=== PATIENT | female | born 1970 | race Caucasian/White ===

== ENCOUNTER 2018-08-05 18:01 | Emergency (ER) | payer MEDICAID ==
[~2018-08-05] VITALS: Ht 162.6 cm; Wt 50.0 kg
[~2018-08-05 18:01] MED LIST: ASPI-1079 PO; DEPO; FOLI-43 PO; INSASP SQ; INSU100C11 SQ; METF500T6 PO; MULT-1146 PO
[2018-08-05] MEDS ORDERED: KETOROLAC 30MG/ML VIAL IV STA (19:23)
[2018-08-05] MEDS ORDERED: SODIUM CHLORIDE 0.9% 1,000 ML IV ONE (19:23)
[2018-08-05] MEDS ORDERED: CEFTRIAXONE 1 G PREMIX 50 ML IV ONE (19:30)
[2018-08-05 20:02] LABS: BASOPHILS % 0.8 % (0.0-2.0); EOSINOPHILS % 2.2 % (0.0-5.0); HEMATOCRIT. 40.7 % (36.0-48.0); HEMOGLOBIN. 13.6 g/dL (12.0-16.0); LYMPHOCYTES % 22.9 % (20.0-50.0); MEAN CORPUSCULAR HEMOGLOBIN 30.7 pg (28.0-32.0); MEAN PLATELET VOLUME 8.8 fl (7.4-10.4); NEUTROPHILS % 64.1 % (40.0-76.0); PLATELET 337 x1000/uL (130-400); RED BLOOD CELL COUNT 4.43 mill/uL (4.2-5.4); RED CELL DISTRIBUTION WIDTH 14.3 % (11.6-14.6)
[2018-08-05 20:06] LABS: CHLORIDE 97 mEq/L (98-107)
[2018-08-05 20:09] LABS: INR 0.9; PROTHROMBIN TIME 9.3 sec (9.1-11.1)
[2018-08-05 20:25] LABS: HCG SCREEN NEGATIVE
[2018-08-05] MEDS ORDERED: INSULIN REGULAR (HUMULIN R) 300UNITS/3ML SUBCUT NR (20:30)
[2018-08-05] MEDS ORDERED: SODIUM CHLORIDE 0.9% 1000ML BAG (SEPSIS BOLUS) IV ONE (20:30)
[2018-08-05] MEDS ORDERED: SODIUM CHLORIDE 0.9% 500 ML IV NR (20:40)
[2018-08-05 21:21] LABS: BG BASE EXCESS 2.7 mmol/L (-2.0-2.0); BG CARBOXYHEMOGLOBIN 3.2 % (0.5-1.5); BG DEOXYHEMOGLOBIN 2.7 % (0.0-5.0); BG FRACTION INSPIRED OXYGEN 21; BG HCO3 ACT 27.1 mmol/L (22.0-26.0); BG METHEMOGLOBIN 0.2 % (0.0-1.5); BG OXYGEN SATURATION 97.2 % (92.0-98.5); BG OXYHEMOGLOBIN 93.9 % (94.0-97.0); BG PCO2 40.9 mmHg (35.0-45.0); BG PH 7.439 (7.350-7.450); BG SAMPLE SITE RIGHT RADIAL; BG TOTAL HEMOGLOBIN 13.6 g/dL (12.0-18.0); BG VENT MODE ROOM AIR
[2018-08-05 22:03] LABS: CLARITY URINE CLEAR (CLEAR); COLOR URINE YELLOW (YELLOW); KETONES URINE NEGATIVE (NEGATIVE); LEUKOCYTE ESTERASE URINE NEGATIVE (NEGATIVE); NITRITE URINE NEGATIVE (NEGATIVE); OCCULT BLOOD URINE NEGATIVE (NEGATIVE); PROTEIN URINE NEGATIVE (NEGATIVE); SPECIFIC GRAVITY URINE 1.023 (1.005-1.030); UROBILINOGEN URINE 0.2 E.U./dL (0.2-1.0)
[2018-08-06] VITALS: BP 124/82
== END 2018-08-06 00:47 | disposition home or self-care (01) ==
LOC: ER 18:01
DX: L03.115 Cellulitis of right lower limb (principal); E11.9 Type 2 diabetes mellitus without complications; F17.210 Nicotine dependence, cigarettes, uncomplicated; Z88.5 Allergy status to narcotic agent; Z90.89 Acquired absence of other organs; Z79.899 Other long term (current) drug therapy; Z79.4 Long term (current) use of insulin; Z79.84 Long term (current) use of oral hypoglycemic drugs
CPT/HCPCS: 36415; 36600; 73560; 80053; 81003; 81025; 82010; 82375; 82805; 82962; 83605; 84703; 85025; 85610; 87040; 93005; 96365; 96372; 96375; 99285; 99406; J0696; J1815; J1885; J7030; Z7610

== ENCOUNTER 2018-08-20 20:04 | Inpatient (IN) | payer MEDICAID ==
[~2018-08-20] VITALS: Ht 162.6 cm; Wt 44.7 kg
[2018-08-20] MEDS ORDERED: SODIUM CHLORIDE 0.9% 1,000 ML IV ONE ×3 (20:32→23:15)
[2018-08-20] MEDS ORDERED: ONDANSETRON HCL 4MG/2ML INJ IV STA (20:32)
[2018-08-20 21:57] LABS: BASOPHILS % 0.2 % (0.0-2.0); EOSINOPHILS % 0.1 % (0.0-5.0); HEMATOCRIT. 39.4 % (36.0-48.0); LYMPHOCYTES % 10.1 % (20.0-50.0); MEAN CORPUSCULAR HEMOGLOBIN 30.9 pg (28.0-32.0); MEAN CORPUSCULAR VOLUME 93.9 fL (81.0-99.0); MEAN PLATELET VOLUME 8.4 fl (7.4-10.4); MONOCYTES % 2.9 % (2.0-8.0); NEUTROPHILS % 86.7 % (40.0-76.0); PLATELET 657 x1000/uL (130-400); RED CELL DISTRIBUTION WIDTH 13.7 % (11.6-14.6)
[2018-08-20 22:01] LABS: CHLORIDE 91 mEq/L (98-107)
[2018-08-20 22:10] LABS: INR 0.9; PROTHROMBIN TIME 9.4 sec (9.1-11.1)
[2018-08-20 22:39] LABS: CLARITY URINE CLEAR (CLEAR); COLOR URINE YELLOW (YELLOW); KETONES URINE 4+ (NEGATIVE); LEUKOCYTE ESTERASE URINE NEGATIVE (NEGATIVE); NITRITE URINE NEGATIVE (NEGATIVE); OCCULT BLOOD URINE NEGATIVE (NEGATIVE); PROTEIN URINE NEGATIVE (NEGATIVE); SPECIFIC GRAVITY URINE 1.023 (1.005-1.030); UROBILINOGEN URINE 0.2 E.U./dL (0.2-1.0)
[2018-08-20 22:53] LABS: BETA HYDROXYBUTYRATE 24.6 mMol/L (0.0-0.3)
[2018-08-20] MEDS ORDERED: INSULIN REGULAR (HUMULIN R) 300UNITS/3ML IV ONE ×2 (23:00→23:15)
[2018-08-20 23:49] LABS: BG BASE EXCESS -15.4 mmol/L (-2.0-2.0); BG CARBOXYHEMOGLOBIN 0.6 % (0.5-1.5); BG DEOXYHEMOGLOBIN 2.7 % (0.0-5.0); BG FRACTION INSPIRED OXYGEN 21; BG HCO3 ACT 8.2 mmol/L (22.0-26.0); BG METHEMOGLOBIN 0.4 % (0.0-1.5); BG OXYGEN SATURATION 97.3 % (92.0-98.5); BG OXYHEMOGLOBIN 96.3 % (94.0-97.0); BG PCO2 16.8 mmHg (35.0-45.0); BG PH 7.309 (7.350-7.450); BG PO2 102.2 mmHg (75.0-100.0); BG SAMPLE SITE RIGHT RADIAL; BG TOTAL HEMOGLOBIN 13.6 g/dL (12.0-18.0); BG VENT MODE ROOM AIR
[2018-08-21] VITALS (37 sets, daily range): BP systolic 100–142; BP diastolic 58–98
[2018-08-21] MEDS ORDERED: ONDANSETRON HCL 4MG/2ML INJ IV ONE (01:15)
[2018-08-21 02:06] LABS: CHLORIDE 96 mEq/L (98-107)
[2018-08-21] MEDS ORDERED: INSULIN REGULAR (DRIP) 100 UNITS in SODIUM CHLORIDE 0.9% 100 ML IV ONE ×2 (02:15→03:15)
[2018-08-21] MEDS ORDERED: LORAZEPAM 2MG/ML CPJ IV ONE (03:00)
[2018-08-21] MEDS ORDERED: INSULIN REGULAR (DRIP) 100 UNITS in SODIUM CHLORIDE 0.9% 100 ML IV SCH (03:15)
[2018-08-21] MEDS ORDERED: DEXTROSE 50% WATER 50ML SYRINGE IV PRN ×2 (06:00)
[2018-08-21] MEDS: ONDANSETRON HCL 4MG/2ML INJ IV PRN ×3 (06:20→22:10)
[2018-08-21] MEDS ORDERED: INSULIN REGULAR (DRIP) 100 UNITS in SODIUM CHLORIDE 0.9% 99 ML IV SCH (06:30)
[2018-08-21] MEDS ORDERED: DEXT 5%/0.9% NACL KCL 20MEQ/L 1,000 ML IV ONE (06:30)
[2018-08-21] MEDS ORDERED: SODIUM CHL 0.9% + KCL 20MEQ/L 1,000 ML IV SCH (06:30)
[2018-08-21] MEDS: ENOXAPARIN 40MG/0.4ML SYR SUBCUT SCH ×2 (08:40→11:46)
[2018-08-21 09:08] LABS: CHLORIDE 106 mEq/L (98-107)
[2018-08-21] MEDS ORDERED: LIDOCAINE HCL 1% 20ML VIAL (Pyxis) INJ ONE (10:05)
[2018-08-21] MEDS: BLOOD SUGAR DIAGNOSTIC STRIP TEST SCH ×13 (11:00→23:00)
[2018-08-21] MEDS: NICOTINE 14MG PATCH TD SCH (11:46)
[2018-08-21 13:27] LABS: CHLORIDE 108 mEq/L (98-107)
[2018-08-21] MEDS: DEXT 5%/0.45% NACL 1000ML 1,000 ML IV SCH (16:28)
[2018-08-21 17:41] LABS: CHLORIDE 108 mEq/L (98-107)
[2018-08-22] VITALS (47 sets, daily range): BP systolic 112–156; BP diastolic 75–97
[2018-08-22] MEDS ORDERED: INSULIN REGULAR (DRIP) 100 UNITS in SODIUM CHLORIDE 0.9% 100 ML IV SCH ×2
[2018-08-22] MEDS: BLOOD SUGAR DIAGNOSTIC STRIP TEST SCH ×7 (01:10→20:00)
[2018-08-22] MEDS: DEXT 5%/0.45% NACL 1000ML 1,000 ML IV SCH ×2 (01:22→21:25)
[2018-08-22] MEDS ORDERED: DEXTROSE 50% WATER 50ML SYRINGE IV PRN (02:15)
[2018-08-22] MEDS: LORAZEPAM 2MG/ML CPJ IV PRN ×3 (03:14→21:25)
[2018-08-22] MEDS ORDERED: INSULIN GLARGINE UD 100 UNITS/ML SYR SUBCUT SCH ×2 (04:00→22:00)
[2018-08-22] MEDS: INSULIN LISPRO 100 UNITS/ML SUBCUT SCH ×5 (05:15→21:24)
[2018-08-22] MEDS ORDERED: PANTOPRAZOLE 40MG DR TABLET PO SCH (06:00)
[2018-08-22 06:13] LABS: BASOPHILS % 0.8 % (0.0-2.0); EOSINOPHILS % 0.2 % (0.0-5.0); HEMATOCRIT. 37.1 % (36.0-48.0); HEMOGLOBIN. 12.5 g/dL (12.0-16.0); LYMPHOCYTES % 16.9 % (20.0-50.0); MEAN CORPUSCULAR HEMOGLOBIN 31.6 pg (28.0-32.0); MEAN CORPUSCULAR VOLUME 93.7 fL (81.0-99.0); MEAN PLATELET VOLUME 9.6 fl (7.4-10.4); NEUTROPHILS % 72.1 % (40.0-76.0); PLATELET 579 x1000/uL (130-400); RED BLOOD CELL COUNT 3.96 mill/uL (4.2-5.4); RED CELL DISTRIBUTION WIDTH 13.3 % (11.6-14.6)
[2018-08-22] MEDS: NICOTINE 14MG PATCH TD SCH (08:43)
[2018-08-22] MEDS: PANTOPRAZOLE 40MG DR TABLET PO SCH (08:44)
[2018-08-22] MEDS: ONDANSETRON HCL 4MG/2ML INJ IV PRN ×2 (08:44→17:42)
[2018-08-22] MEDS: ENOXAPARIN 30MG/0.3ML SYR SUBCUT SCH (08:45)
[2018-08-22 13:17] LABS: BASOPHILS % 0.4 % (0.0-2.0); EOSINOPHILS % 0.1 % (0.0-5.0); HEMATOCRIT. 36.5 % (36.0-48.0); HEMOGLOBIN. 12.4 g/dL (12.0-16.0); LYMPHOCYTES % 18.7 % (20.0-50.0); MEAN CORPUSCULAR HEMOGLOBIN 31.4 pg (28.0-32.0); MEAN CORPUSCULAR VOLUME 92.3 fL (81.0-99.0); MEAN PLATELET VOLUME 8.1 fl (7.4-10.4); MONOCYTES % 13.6 % (2.0-8.0); NEUTROPHILS % 67.2 % (40.0-76.0); PLATELET 534 x1000/uL (130-400); RED BLOOD CELL COUNT 3.96 mill/uL (4.2-5.4); RED CELL DISTRIBUTION WIDTH 13.8 % (11.6-14.6)
[2018-08-22 14:09] LABS: CHLORIDE 97 mEq/L (98-107)
[2018-08-22 14:14] LABS: *BARBITURATES SCREEN URINE NEGATIVE (NEGATIVE); *BENZODIAZEPINES SCREEN URINE NEGATIVE (NEGATIVE)
[2018-08-22 14:15] LABS: *COCAINE SCREEN URINE NEGATIVE (NEGATIVE); CANNABINOID URINE SCREEN NEGATIVE (NEGATIVE); METHADONE URINE SCREEN NEGATIVE (NEGATIVE); OPIATES URINE SCREEN NEGATIVE (NEGATIVE); PHENCYCLIDINE URINE SCREEN NEGATIVE (NEGATIVE)
[2018-08-22 14:24] LABS: *AMPHETAMINES SCREEN URINE PRESUMTIVE POSITIVE (NEGATIVE)
[2018-08-23] VITALS (21 sets, daily range): BP systolic 95–130; BP diastolic 58–92
[2018-08-23] MEDS: INSULIN LISPRO 100 UNITS/ML SUBCUT SCH ×4 (00:09→12:18)
[2018-08-23] MEDS: BLOOD SUGAR DIAGNOSTIC STRIP TEST SCH ×4 (00:09→11:46)
[2018-08-23 06:33] LABS: BASOPHILS % 0.6 % (0.0-2.0); EOSINOPHILS % 0.4 % (0.0-5.0); HEMATOCRIT. 38.6 % (36.0-48.0); HEMOGLOBIN. 13.4 g/dL (12.0-16.0); LYMPHOCYTES % 39.7 % (20.0-50.0); MEAN CORPUSCULAR HEMOGLOBIN 31.8 pg (28.0-32.0); MEAN CORPUSCULAR VOLUME 91.8 fL (81.0-99.0); MEAN PLATELET VOLUME 8.1 fl (7.4-10.4); MONOCYTES % 14.5 % (2.0-8.0); NEUTROPHILS % 44.8 % (40.0-76.0); PLATELET 566 x1000/uL (130-400); RED BLOOD CELL COUNT 4.21 mill/uL (4.2-5.4); RED CELL DISTRIBUTION WIDTH 13.6 % (11.6-14.6)
[2018-08-23 06:35] LABS: CHLORIDE 99 mEq/L (98-107)
[2018-08-23] MEDS: PANTOPRAZOLE 40MG DR TABLET PO SCH (08:52)
[2018-08-23] MEDS: NICOTINE 14MG PATCH TD SCH (08:53)
[2018-08-23] MEDS: ENOXAPARIN 30MG/0.3ML SYR SUBCUT SCH (08:53)
[2018-08-23] MEDS: LORAZEPAM 2MG/ML CPJ IV PRN (09:06)
[2018-08-23] MEDS: DEXT 5%/0.45% NACL 1000ML 1,000 ML IV SCH (09:06)
[2018-08-23] MEDS ORDERED: KCL 20MEQ/100ML PREMIX 100 ML IV SCH (12:00)
[2018-08-23] MEDS ORDERED: POTASSIUM CHLORIDE 20MEQ TABLET SR PO SCH (14:45)
== END 2018-08-23 15:57 | disposition home or self-care (01) | DRG 420 ==
LOC: ER 20:04 → ENRESERV 08-21 03:04 → CVICU 08-21 03:04 → 5WST 08-23 11:53
PROVIDERS: ADMIT Internal Medicine; ATTEND Internal Medicine
PROC: 05HY33Z Insertion of Infusion Device into Upper Vein, Percutaneous Approach (ICD-10-PCS; principal; 2018-08-21)
PROC: B54MZZA Ultrasonography of Right Upper Extremity Veins, Guidance (ICD-10-PCS; 2018-08-21)
DX: E11.10 Type 2 diabetes mellitus with ketoacidosis without coma (principal); E44.1 Mild protein-calorie malnutrition; E87.8 Other disorders of electrolyte and fluid balance, not elsewhere classified; D72.829 Elevated white blood cell count, unspecified; E87.1 Hypo-osmolality and hyponatremia; E87.5 Hyperkalemia; F15.90 Other stimulant use, unspecified, uncomplicated; F17.200 Nicotine dependence, unspecified, uncomplicated; Z79.4 Long term (current) use of insulin; Z79.899 Other long term (current) drug therapy; Z71.6 Tobacco abuse counseling; Z88.5 Allergy status to narcotic agent
CPT/HCPCS: 36415; 36569; 36600; 71045; 76937; 80048; 80053; 80305; 81003; 81025; 82010; 82375; 82805; 82962; 84484; 85025; 85610; 93005; 96361; 96374; 96375; 99291; C1725; C1893; J1650; J1815; J2060; J2405; J3480; J3490; J7030; J7040; J7050

== ENCOUNTER 2019-03-16 02:14 | Inpatient (IN) | payer MEDICAID ==
[2019-03-16] VITALS (15 sets, daily range): BP systolic 95–121; BP diastolic 51–77
[~2019-03-16] VITALS: Ht 160 cm; Wt 50.8 kg
[~2019-03-16 02:14] MED LIST changes: +METF-414 PO; -METF500T6 PO
[2019-03-16] MEDS ORDERED: SODIUM CHLORIDE 0.9% 1,000 ML IV ONE ×2 (04:47→05:59)
[2019-03-16] MEDS ORDERED: ONDANSETRON HCL 4MG/2ML INJ IV STA (04:47)
[2019-03-16 05:25] LABS: BASOPHILS % 0.4 % (0.0-2.0); EOSINOPHILS % 0.2 % (0.0-5.0); HEMATOCRIT. 51.6 % (36.0-48.0); HEMOGLOBIN. 15.8 g/dL (12.0-16.0); LYMPHOCYTES % 7.9 % (20.0-50.0); MEAN CORPUSCULAR HEMOGLOBIN 29.3 pg (28.0-32.0); MEAN CORPUSCULAR VOLUME 95.6 fL (81.0-99.0); MEAN PLATELET VOLUME 10.4 fl (7.4-10.4); MONOCYTES % 7.3 % (2.0-8.0); NEUTROPHILS % 84.2 % (40.0-76.0); PLATELET 359 x1000/uL (130-400); RED CELL DISTRIBUTION WIDTH 13.6 % (11.6-14.6)
[2019-03-16] MEDS ORDERED: INSULIN REGULAR (DRIP) 100 UNITS in SODIUM CHLORIDE 0.9% 100 ML IV ONE (05:59)
[2019-03-16] MEDS ORDERED: INSULIN REGULAR (DRIP) 100 UNITS in SODIUM CHLORIDE 0.9% 100 ML IV SCH ×8 (06:21→12:00)
[2019-03-16] MEDS ORDERED: ONDANSETRON HCL 4MG/2ML INJ IV ONE (06:30)
[2019-03-16 06:45] LABS: BG BASE EXCESS -13.4 mmol/L (-2.0-2.0); BG CARBOXYHEMOGLOBIN 0.4 % (0.5-1.5); BG DEOXYHEMOGLOBIN 3.1 % (0.0-5.0); BG FRACTION INSPIRED OXYGEN 21; BG HCO3 ACT 11.8 mmol/L (22.0-26.0); BG METHEMOGLOBIN 0.2 % (0.0-1.5); BG OXYGEN SATURATION 96.9 % (92.0-98.5); BG OXYHEMOGLOBIN 96.3 % (94.0-97.0); BG PCO2 26.4 mmHg (35.0-45.0); BG PH 7.267 (7.350-7.450); BG PO2 102.1 mmHg (75.0-100.0); BG SAMPLE SITE RIGHT BRACHIAL; BG TOTAL HEMOGLOBIN 14.4 g/dL (12.0-18.0); BG VENT MODE ROOM AIR
[2019-03-16 07:00] LABS: ETHANOL BLOOD < 10 mg/dL
[2019-03-16 07:05] LABS: CLARITY URINE CLEAR (CLEAR); COLOR URINE YELLOW (YELLOW); KETONES URINE NEGATIVE (NEGATIVE); LEUKOCYTE ESTERASE URINE NEGATIVE (NEGATIVE); NITRITE URINE NEGATIVE (NEGATIVE); OCCULT BLOOD URINE 1+ (NEGATIVE); PROTEIN URINE NEGATIVE (NEGATIVE); SPECIFIC GRAVITY URINE 1.006 (1.005-1.030)
[2019-03-16 07:06] LABS: HCG SCREEN NEGATIVE
[2019-03-16 07:48] LABS: *AMPHETAMINES SCREEN URINE NEGATIVE (NEGATIVE); *BARBITURATES SCREEN URINE NEGATIVE (NEGATIVE); *BENZODIAZEPINES SCREEN URINE NEGATIVE (NEGATIVE); *COCAINE SCREEN URINE NEGATIVE (NEGATIVE); CANNABINOID URINE SCREEN NEGATIVE (NEGATIVE); METHADONE URINE SCREEN NEGATIVE (NEGATIVE); OPIATES URINE SCREEN NEGATIVE (NEGATIVE); PHENCYCLIDINE URINE SCREEN NEGATIVE (NEGATIVE)
[2019-03-16] MEDS ORDERED: IPRATROPIUM/ALBUTEROL 0.5-3(2.5)MG/3ML NEB INH PRN (09:00)
[2019-03-16] MEDS ORDERED: CLONIDINE 0.1MG TABLET PO PRN (09:00)
[2019-03-16] MEDS ORDERED: MAGNESIUM/ALUMINUM HYDROXIDE/SIMETHICONE 30ML UDC PO PRN (09:00)
[2019-03-16] MEDS ORDERED: DOCUSATE SODIUM 100MG CAPSULE PO PRN (09:00)
[2019-03-16] MEDS ORDERED: GUAIFENESIN 200MG/10ML SUGAR FREE UDC PO PRN (09:00)
[2019-03-16] MEDS ORDERED: DIPHENHYDRAMINE 50MG/ML VIAL IV PRN (09:00)
[2019-03-16] MEDS ORDERED: DEXTROSE 50% WATER 50ML SYRINGE IV PRN ×2 (11:00)
[2019-03-16] MEDS ORDERED: SODIUM CHLORIDE 0.9% 1,000 ML IV SCH (11:00)
[2019-03-16 11:19] LABS: HEPATITIS B SURFACE ANTIGEN NEGATIVE
[2019-03-16] MEDS: BLOOD SUGAR DIAGNOSTIC STRIP TEST SCH ×11 (11:22→23:49)
[2019-03-16] MEDS ORDERED: DEXT 5%/0.9% NACL 1,000 ML IV SCH ×2 (11:30)
[2019-03-16 11:48] LABS: HEPATITIS A AB IGM NEGATIVE (NEGATIVE)
[2019-03-16] MEDS ORDERED: SODIUM CHL 0.9% + KCL 20MEQ/L 1,000 ML IV SCH ×2 (12:15→14:00)
[2019-03-16] MEDS: ONDANSETRON HCL 4MG/2ML INJ IV PRN ×2 (12:26→19:39)
[2019-03-16] MEDS ORDERED: DEXT 5%/0.9% NACL KCL 20MEQ/L 1,000 ML IV SCH ×2 (13:00)
[2019-03-16] MEDS: ENOXAPARIN 60MG/0.6ML SYR SUBCUT SCH (15:25)
[2019-03-16 16:59] LABS: BG BASE EXCESS 8.7 mmol/L (-2.0-2.0); BG CARBOXYHEMOGLOBIN 0.3 % (0.5-1.5); BG DEOXYHEMOGLOBIN 4.3 % (0.0-5.0); BG FRACTION INSPIRED OXYGEN 21; BG HCO3 ACT 31.9 mmol/L (22.0-26.0); BG METHEMOGLOBIN 0.4 % (0.0-1.5); BG OXYGEN SATURATION 95.7 % (92.0-98.5); BG PH 7.531 (7.350-7.450); BG SAMPLE SITE RIGHT BRACHIAL; BG TOTAL HEMOGLOBIN 13.8 g/dL (12.0-18.0); BG VENT MODE ROOM AIR
[2019-03-16 17:12] LABS: BASOPHILS % 0.5 % (0.0-2.0); HEMATOCRIT. 43.8 % (36.0-48.0); HEMOGLOBIN. 14.8 g/dL (12.0-16.0); LYMPHOCYTES % 8.6 % (20.0-50.0); MEAN CORPUSCULAR VOLUME 85.6 fL (81.0-99.0); MEAN PLATELET VOLUME 9.1 fl (7.4-10.4); MONOCYTES % 8.1 % (2.0-8.0); NEUTROPHILS % 82.8 % (40.0-76.0); PLATELET 375 x1000/uL (130-400); RED BLOOD CELL COUNT 5.12 mill/uL (4.2-5.4); RED CELL DISTRIBUTION WIDTH 12.9 % (11.6-14.6)
[2019-03-16 17:21] LABS: CHLORIDE 94 mEq/L (98-107)
[2019-03-16 17:27] LABS: PHOSPHORUS 2.8 mg/dL (2.5-4.9)
[2019-03-16 17:28] LABS: LDL CHOLESTEROL 90 mg/dL (5-100)
[2019-03-16 17:29] LABS: CREATINE KINASE 66 IU/L (26-192); HDL CHOLESTEROL 92 mg/dL (40-59)
[2019-03-16 17:32] LABS: CREATINE KINASE MB FRACTION 1.7 ng/mL (0.5-3.6)
[2019-03-16] MEDS ORDERED: POTASSIUM CHLORIDE 20MEQ TABLET SR PO NR (18:30)
[2019-03-16] MEDS: SODIUM CHLORIDE 0.9% 1,000 ML IV SCH (21:00)
[2019-03-16] MEDS: INSULIN GLARGINE UD 100 UNITS/ML SYR SUBCUT SCH (21:08)
[2019-03-16] MEDS: INSULIN LISPRO 100 UNITS/ML SUBCUT SCH (23:49)
[2019-03-16] MEDS: ZOLPIDEM TARTRATE 5MG TABLET PO PRN (23:50)
[2019-03-17] MEDS ORDERED: DEXTROSE 50% WATER 50ML SYRINGE IV PRN
[2019-03-17 00:52] LABS: CREATINE KINASE 75 IU/L (26-192); CREATINE KINASE MB FRACTION < 1.0 ng/mL (0.5-3.6)
[2019-03-17] MEDS: ENOXAPARIN 60MG/0.6ML SYR SUBCUT SCH ×2 (01:16→14:21)
[2019-03-17] MEDS: BLOOD SUGAR DIAGNOSTIC STRIP TEST SCH ×6 (04:10→23:31)
[2019-03-17] MEDS: SODIUM CHLORIDE 0.9% 1,000 ML IV SCH ×2 (04:10→21:23)
[2019-03-17] MEDS: INSULIN LISPRO 100 UNITS/ML SUBCUT SCH ×6 (04:11→23:43)
[2019-03-17 05:59] LABS: BASOPHILS % 0.5 % (0.0-2.0); EOSINOPHILS % 0.2 % (0.0-5.0); HEMATOCRIT. 40.3 % (36.0-48.0); HEMOGLOBIN. 13.4 g/dL (12.0-16.0); LYMPHOCYTES % 16.8 % (20.0-50.0); MEAN CORPUSCULAR HEMOGLOBIN 29.4 pg (28.0-32.0); MEAN CORPUSCULAR VOLUME 88.3 fL (81.0-99.0); MEAN PLATELET VOLUME 10.3 fl (7.4-10.4); MONOCYTES % 9.8 % (2.0-8.0); NEUTROPHILS % 72.7 % (40.0-76.0); PLATELET 268 x1000/uL (130-400); RED BLOOD CELL COUNT 4.56 mill/uL (4.2-5.4); RED CELL DISTRIBUTION WIDTH 13.2 % (11.6-14.6)
[2019-03-17 06:12] LABS: CHLORIDE 100 mEq/L (98-107)
[2019-03-17 06:23] LABS: LDL CHOLESTEROL 74 mg/dL (5-100)
[2019-03-17 06:25] LABS: HDL CHOLESTEROL 78 mg/dL (40-59)
[2019-03-17 12:00] VITALS: BP 116/74
[2019-03-17] MEDS: ONDANSETRON HCL 4MG/2ML INJ IV PRN ×2 (14:20→23:24)
[2019-03-17] MEDS: ACETAMINOPHEN 325MG TABLET PO PRN (15:35)
[2019-03-17 16:00] VITALS: BP 128/79
[2019-03-17 20:00] VITALS: BP 130/79
[2019-03-17] MEDS: INSULIN GLARGINE UD 100 UNITS/ML SYR SUBCUT SCH (21:29)
[2019-03-17] MEDS: ZOLPIDEM TARTRATE 5MG TABLET PO PRN (23:38)
[2019-03-18] VITALS: BP 136/75
[2019-03-18] MEDS ORDERED: ENOXAPARIN 60MG/0.6ML SYR SUBCUT SCH (02:00)
[2019-03-18 04:00] VITALS: BP 129/81
[2019-03-18] MEDS: BLOOD SUGAR DIAGNOSTIC STRIP TEST SCH ×2 (04:00→08:00)
[2019-03-18] MEDS: ONDANSETRON HCL 4MG/2ML INJ IV PRN (05:05)
[2019-03-18] MEDS: ACETAMINOPHEN 325MG TABLET PO PRN (05:07)
[2019-03-18 05:17] LABS: HIV SCREEN 4G Non Reactive (Non Reactive)
[2019-03-18] MEDS: INSULIN LISPRO 100 UNITS/ML SUBCUT SCH (05:27)
[2019-03-18 06:30] LABS: BASOPHILS % 0.2 % (0.0-2.0); HEMATOCRIT. 43.2 % (36.0-48.0); HEMOGLOBIN. 14.5 g/dL (12.0-16.0); LYMPHOCYTES % 14.4 % (20.0-50.0); MEAN CORPUSCULAR HEMOGLOBIN 29.9 pg (28.0-32.0); MEAN CORPUSCULAR VOLUME 88.9 fL (81.0-99.0); MEAN PLATELET VOLUME 9.2 fl (7.4-10.4); MONOCYTES % 7.7 % (2.0-8.0); NEUTROPHILS % 77.7 % (40.0-76.0); PLATELET 305 x1000/uL (130-400); RED BLOOD CELL COUNT 4.85 mill/uL (4.2-5.4)
[2019-03-18 06:35] LABS: CHLORIDE 95 mEq/L (98-107)
[2019-03-18] MEDS ORDERED: INSULIN GLARGINE UD 100 UNITS/ML SYR SUBCUT ONE (07:30)
[2019-03-18 08:00] VITALS: BP 114/75
[2019-03-18] MEDS ORDERED: INSULIN LISPRO 100 UNITS/ML SUBCUT SCH ×2 (08:00→12:50)
[2019-03-18] MEDS ORDERED: INSULIN GLARGINE UD 100 UNITS/ML SYR SUBCUT SCH ×2 (10:00→22:00)
[2019-03-18] MEDS ORDERED: INSULIN GLARGINE UD 100 UNITS/ML SYR SUBCUT NR (11:00)
== END 2019-03-18 11:55 | disposition left against medical advice (07) | DRG 420 ==
LOC: ER 02:14 → MICUSO 06:35 → ENRESERV 09:55 → 6EST 03-17 11:33
PROVIDERS: ADMIT Internal Medicine; ATTEND Internal Medicine
DX: E11.11 Type 2 diabetes mellitus with ketoacidosis with coma (principal); E83.39 Other disorders of phosphorus metabolism; E11.01 Type 2 diabetes mellitus with hyperosmolarity with coma; E83.41 Hypermagnesemia; F17.210 Nicotine dependence, cigarettes, uncomplicated; D72.829 Elevated white blood cell count, unspecified; Z53.21 Procedure and treatment not carried out due to patient leaving prior to being seen by health care provider; F15.90 Other stimulant use, unspecified, uncomplicated; N28.9 Disorder of kidney and ureter, unspecified; K59.00 Constipation, unspecified; K30 Functional dyspepsia; R79.89 Other specified abnormal findings of blood chemistry; G47.00 Insomnia, unspecified; E87.1 Hypo-osmolality and hyponatremia; Z90.49 Acquired absence of other specified parts of digestive tract; Z79.4 Long term (current) use of insulin; Z79.84 Long term (current) use of oral hypoglycemic drugs; Z88.6 Allergy status to analgesic agent; Z79.82 Long term (current) use of aspirin; Z79.899 Other long term (current) drug therapy
CPT/HCPCS: 36415; 36600; 71045; 80048; 80061; 80076; 80305; 80320; 82375; 82550; 82553; 82805; 82962; 83036; 83605; 83735; 84100; 84443; 84484; 84703; 86705; 86709; 86803; 87340; 87389; 93005; 93970; 96374; 96375; 97162; 99291; J1650; J1815; J2405; J3480; J7030; J7042; J7050; G0480

== ENCOUNTER 2019-03-22 06:36 | Emergency (ER) | payer MEDICAID ==
[~2019-03-22] VITALS: Ht 162.6 cm; Wt 53.0 kg
[2019-03-22] MEDS ORDERED: SODIUM CHLORIDE 0.9% 1,000 ML IV ONE ×2 (07:18→09:09)
[2019-03-22] MEDS ORDERED: ONDANSETRON HCL 4MG/2ML INJ IV STA (07:18)
[2019-03-22] MEDS ORDERED: MAGNESIUM/ALUMINUM HYDROXIDE/SIMETHICONE 30ML UDC PO ONE (07:30)
[2019-03-22] MEDS ORDERED: DICYCLOMINE 10 MG/5 ML ORAL SYR PO ONE (07:30)
[2019-03-22] MEDS ORDERED: VISCOUS LIDOCAINE 2% 15 ML UDC PO ONE (07:30)
[2019-03-22 07:46] LABS: HEMATOCRIT. 44.4 % (36.0-48.0); MEAN CORPUSCULAR HEMOGLOBIN 29.7 pg (28.0-32.0); MEAN CORPUSCULAR VOLUME 87.7 fL (81.0-99.0); MEAN PLATELET VOLUME 9.3 fl (7.4-10.4); PLATELET 411 x1000/uL (130-400); RED BLOOD CELL COUNT 5.07 mill/uL (4.2-5.4); RED CELL DISTRIBUTION WIDTH 12.7 % (11.6-14.6)
[2019-03-22 07:49] LABS: CHLORIDE 95 mEq/L (98-107)
[2019-03-22] MEDS ORDERED: POTASSIUM CHLORIDE 20MEQ TABLET SR PO ONE (08:15)
[2019-03-22 08:43] LABS: PLATELET ESTIMATE SLIGHTLY INCREASED
[2019-03-22 10:15] VITALS: BP 123/85
== END 2019-03-22 10:58 | disposition home or self-care (01) ==
LOC: ER 06:36
DX: R07.89 Other chest pain (principal); E11.9 Type 2 diabetes mellitus without complications; F17.210 Nicotine dependence, cigarettes, uncomplicated; Z88.5 Allergy status to narcotic agent; Z90.49 Acquired absence of other specified parts of digestive tract; Z79.4 Long term (current) use of insulin; Z79.82 Long term (current) use of aspirin
CPT/HCPCS: 36415; 71045; 80053; 82962; 83880; 84484; 85025; 93005; 96361; 96374; 99284; J2405; J7030; Z7610

== ENCOUNTER 2019-07-04 10:56 | Emergency (ER) | payer MEDICAID ==
[~2019-07-04] VITALS: Ht 160 cm; Wt 46.0 kg
[2019-07-04] MEDS ORDERED: SODIUM CHLORIDE 0.9% 2,000 ML IV ONE (11:33)
[2019-07-04 12:11] LABS: BASOPHILS % 1.2 % (0.0-2.0); HEMATOCRIT. 43.7 % (36.0-48.0); HEMOGLOBIN. 14.6 g/dL (12.0-16.0); LYMPHOCYTES % 15.8 % (20.0-50.0); MEAN CORPUSCULAR HEMOGLOBIN 30.2 pg (28.0-32.0); MEAN CORPUSCULAR VOLUME 90.7 fL (81.0-99.0); MEAN PLATELET VOLUME 9.7 fl (7.4-10.4); MONOCYTES % 6.7 % (2.0-8.0); NEUTROPHILS % 76.3 % (40.0-76.0); PLATELET 280 x1000/uL (130-400); RED BLOOD CELL COUNT 4.82 mill/uL (4.2-5.4); RED CELL DISTRIBUTION WIDTH 13.2 % (11.6-14.6)
[2019-07-04 12:21] LABS: CHLORIDE 92 mEq/L (98-107)
[2019-07-04 12:28] LABS: BETA HYDROXYBUTYRATE 4.5 mMol/L (0.0-0.3)
[2019-07-04 12:58] LABS: BG BASE EXCESS -5.6 mmol/L (-2.0-2.0); BG CARBOXYHEMOGLOBIN 1.6 % (0.5-1.5); BG DEOXYHEMOGLOBIN 2.8 % (0.0-5.0); BG FRACTION INSPIRED OXYGEN 21; BG HCO3 ACT 18.1 mmol/L (22.0-26.0); BG METHEMOGLOBIN 0.2 % (0.0-1.5); BG OXYGEN SATURATION 97.1 % (92.0-98.5); BG OXYHEMOGLOBIN 95.4 % (94.0-97.0); BG PCO2 30.2 mmHg (35.0-45.0); BG PH 7.396 (7.350-7.450); BG PO2 90.7 mmHg (75.0-100.0); BG SAMPLE SITE LEFT RADIAL; BG TOTAL HEMOGLOBIN 12.5 g/dL (12.0-18.0); BG VENT MODE ROOM AIR
[2019-07-04 13:43] LABS: CLARITY URINE CLOUDY (CLEAR); COLOR URINE YELLOW (YELLOW); KETONES URINE 4+ (NEGATIVE); LEUKOCYTE ESTERASE URINE NEGATIVE (NEGATIVE); NITRITE URINE NEGATIVE (NEGATIVE); OCCULT BLOOD URINE NEGATIVE (NEGATIVE); PROTEIN URINE NEGATIVE (NEGATIVE); SPECIFIC GRAVITY URINE 1.036 (1.005-1.030); UROBILINOGEN URINE 0.2 E.U./dL (0.2-1.0)
[2019-07-04] MEDS ORDERED: INSULIN REGULAR (DRIP) 100 UNITS in SODIUM CHLORIDE 0.9% 99 ML IV SCH (14:00)
[2019-07-04] MEDS ORDERED: ONDANSETRON HCL 4MG/2ML INJ IV PRN (14:15)
[2019-07-04] MEDS ORDERED: SODIUM CHLORIDE 0.9% 1,000 ML IV SCH (14:15)
[2019-07-04] MEDS ORDERED: DEXTROSE 50% WATER 50ML SYRINGE IV PRN (14:15)
[2019-07-04] MEDS ORDERED: KETOROLAC 30MG/ML VIAL IV PRN (14:30)
[2019-07-04] MEDS ORDERED: TRAMADOL 50MG TABLET PO PRN (14:30)
[2019-07-04 16:52] LABS: CHLORIDE 97 mEq/L (98-107)
[2019-07-04] MEDS ORDERED: BLOOD SUGAR DIAGNOSTIC STRIP TEST SCH (17:00)
[2019-07-04] MEDS ORDERED: POTASSIUM CHLORIDE 20MEQ TABLET SR PO ONE (17:30)
[2019-07-04] MEDS ORDERED: INSULIN GLARGINE UD 100 UNITS/ML SYR SUBCUT SCH ×2 (18:00→22:00)
[2019-07-04] MEDS ORDERED: INSULIN LISPRO 100 UNITS/ML SUBCUT SCH (18:20)
[2019-07-04 18:33] VITALS: BP 118/71
[2019-07-04] MEDS ORDERED: GABAPENTIN 300MG CAPSULE PO SCH (22:00)
== END 2019-07-04 18:44 | disposition home or self-care (01) ==
LOC: ER 11:07 → EDBEDREQ 13:39 → EDBEDREQSVC 17:29 → ENRESERV 17:58 → CANRESERV 17:58 → CANBEDREQ 18:10 → ER 18:44
DX: E11.10 Type 2 diabetes mellitus with ketoacidosis without coma (principal); E11.65 Type 2 diabetes mellitus with hyperglycemia; E87.1 Hypo-osmolality and hyponatremia; E87.8 Other disorders of electrolyte and fluid balance, not elsewhere classified; R10.84 Generalized abdominal pain; Z88.5 Allergy status to narcotic agent; Z90.49 Acquired absence of other specified parts of digestive tract; Z79.899 Other long term (current) drug therapy
CPT/HCPCS: 36415; 36600; 71045; 80053; 81003; 81025; 82010; 82375; 82805; 82962; 83036; 83735; 83880; 84100; 84484; 85025; 93005; 96361; 96365; 96366; 96372; 96375; 99291; J1815; J1885; J2405; J7030; J7050

== ENCOUNTER 2019-11-07 07:40 | Emergency (ER) | payer MEDICAID ==
[~2019-11-07] VITALS: Ht 162.6 cm; Wt 50.0 kg
[2019-11-07 08:03] VITALS: BP 132/83
== END 2019-11-07 08:41 | disposition home or self-care (01) ==
LOC: ER 07:51
DX: L03.111 Cellulitis of right axilla (principal); Z90.49 Acquired absence of other specified parts of digestive tract; Z88.5 Allergy status to narcotic agent
CPT/HCPCS: 81025; 99283

== ENCOUNTER 2021-12-08 10:37 | Inpatient (IN) | payer MEDICAID ==
[~2021-12-08] VITALS: Ht 162.6 cm; Wt 55.9 kg
[2021-12-08] MEDS ORDERED: SODIUM CHLORIDE 0.9% 1,000 ML IV ONE ×2 (11:30→12:15)
[2021-12-08] MEDS ORDERED: ONDANSETRON HCL 4MG/2ML INJ IV STA (12:03)
[2021-12-08 12:33] LABS: HEMATOCRIT. 37.6 % (36.0-48.0); HEMOGLOBIN. 11.9 g/dL (12.0-16.0); MEAN CORPUSCULAR HEMOGLOBIN 28.3 pg (28.0-32.0); MEAN CORPUSCULAR VOLUME 89.7 fL (81.0-99.0); MEAN PLATELET VOLUME 9.8 fl (7.4-10.4); PLATELET 621 x1000/uL (130-400); RED CELL DISTRIBUTION WIDTH 12.7 % (11.6-14.6)
[2021-12-08 12:42] LABS: HCG SCREEN NEGATIVE
[2021-12-08 12:43] LABS: CHLORIDE 88 mEq/L (98-107)
[2021-12-08 13:13] LABS: BETA HYDROXYBUTYRATE 12.2 mMol/L (0.0-0.3)
[2021-12-08 13:14] LABS: BG BASE EXCESS -16.7 mmol/L (-2.0-2.0); BG CARBOXYHEMOGLOBIN 0.3 % (0.5-1.5); BG DEOXYHEMOGLOBIN 3.1 % (0.0-5.0); BG HCO3 ACT 9.4 mmol/L (22.0-26.0); BG METHEMOGLOBIN 0.2 % (0.0-1.5); BG OXYGEN SATURATION 96.9 % (92.0-98.5); BG OXYHEMOGLOBIN 96.4 % (94.0-97.0); BG PCO2 24.1 mmHg (35.0-45.0); BG PO2 101.3 mmHg (75.0-100.0); BG SAMPLE SITE RIGHT RADIAL; BG TOTAL HEMOGLOBIN 12.3 g/dL (12.0-18.0); BG VENT MODE ROOM AIR
[2021-12-08] MEDS ORDERED: INSULIN REGULAR (DRIP) 100 UNITS in SODIUM CHLORIDE 0.9% 99 ML IV ONE (13:15)
[2021-12-08] MEDS ORDERED: CEFTRIAXONE 1 G PREMIX 50 ML IV ONE ×2 (13:15→13:30)
[2021-12-08] MEDS ORDERED: SODIUM CHLORIDE 0.9% 1000ML BAG (SEPSIS BOLUS) IV ONE (13:15)
[2021-12-08] MEDS ORDERED: AZITHROMYCIN 500MG/250ML 250 ML IV ONE (13:30)
[2021-12-08] MEDS ORDERED: INSULIN REGULAR (DRIP) 100 UNITS in SODIUM CHLORIDE 0.9% 99 ML IV NR (14:00)
[2021-12-08 14:53] LABS: PLATELET ESTIMATE INCREASED
[2021-12-08 15:13] LABS: CLARITY URINE CLEAR (CLEAR); COLOR URINE YELLOW (YELLOW); KETONES URINE 4+ (NEGATIVE); LEUKOCYTE ESTERASE URINE TRACE (NEGATIVE); NITRITE URINE NEGATIVE (NEGATIVE); OCCULT BLOOD URINE NEGATIVE (NEGATIVE); PROTEIN URINE NEGATIVE (NEGATIVE); SPECIFIC GRAVITY URINE 1.025 (1.005-1.030); UROBILINOGEN URINE 0.2 E.U./dL (0.2-1.0)
[2021-12-08] MEDS ORDERED: LORAZEPAM 0.5MG TABLET PO PRN (16:30)
[2021-12-09 09:23] LABS: CHLORIDE 116 mEq/L (98-107)
[2021-12-09] MEDS ORDERED: DEXTROSE 50% WATER 50ML SYRINGE IV PRN (10:45)
[2021-12-09] MEDS ORDERED: DOCUSATE SODIUM 100MG CAPSULE PO PRN (11:00)
[2021-12-09] MEDS ORDERED: HYDROCODONE/ACETAMINOPHEN 5/325MG TABLET PO PRN (11:00)
[2021-12-09] MEDS ORDERED: ONDANSETRON HCL 4MG/2ML INJ IV PRN (11:00)
[2021-12-09] MEDS ORDERED: LORAZEPAM 0.5MG TABLET PO PRN (11:00)
[2021-12-09] MEDS ORDERED: ACETAMINOPHEN 325MG TABLET PO PRN ×2 (11:00)
[2021-12-09] MEDS ORDERED: CLONIDINE 0.1MG TABLET PO PRN (11:00)
[2021-12-09] MEDS: SODIUM CHLORIDE 0.45% 1,000 ML IV SCH ×2 (11:14→23:21)
[2021-12-09] MEDS ORDERED: NALOXONE HCL 0.4MG/ML VIAL IV PRN (11:15)
[2021-12-09 11:59] LABS: BG BASE EXCESS -4.2 mmol/L (-2.0-2.0); BG CARBOXYHEMOGLOBIN 0.3 % (0.5-1.5); BG DEOXYHEMOGLOBIN 1.4 % (0.0-5.0); BG FRACTION INSPIRED OXYGEN 100; BG HCO3 ACT 20.7 mmol/L (22.0-26.0); BG METHEMOGLOBIN 0.2 % (0.0-1.5); BG OXYGEN SATURATION 98.6 % (92.0-98.5); BG OXYHEMOGLOBIN 98.1 % (94.0-97.0); BG PCO2 37.2 mmHg (35.0-45.0); BG PH 7.363 (7.350-7.450); BG SAMPLE SITE RIGHT RADIAL; BG TOTAL HEMOGLOBIN 10.5 g/dL (12.0-18.0); BG VENT MODE MASK - NRB
[2021-12-09] MEDS: INSULIN GLARGINE UD 100 UNITS/ML SYR SUBCUT SCH ×2 (12:07→23:40)
[2021-12-09] MEDS: BLOOD SUGAR DIAGNOSTIC STRIP TEST SCH ×3 (13:03→21:00)
[2021-12-09] MEDS: INSULIN LISPRO 100 UNITS/ML SUBCUT SCH ×3 (13:20→21:05)
[2021-12-09] MEDS ORDERED: AZITHROMYCIN 500 MG in DEXT 5% WATER 250 ML IV SCH (14:30)
[2021-12-09] MEDS ORDERED: CEFTRIAXONE 1 G PREMIX 50 ML IV SCH (15:00)
[2021-12-09] MEDS: DEXAMETHASONE 4MG/ML 1ML VIAL IV SCH (15:00)
[2021-12-09 20:40] LABS: CHLORIDE 107 mEq/L (98-107)
[2021-12-09] MEDS ORDERED: ENOXAPARIN 40MG/0.4ML SYR SUBCUT SCH (21:00)
[2021-12-09 22:15] VITALS: BP 101/64
[2021-12-10] VITALS: BP 96/65
[2021-12-10 04:00] VITALS: BP 110/73
[2021-12-10] MEDS: BLOOD SUGAR DIAGNOSTIC STRIP TEST SCH (06:26)
[2021-12-10] MEDS: INSULIN LISPRO 100 UNITS/ML SUBCUT SCH (06:31)
[2021-12-10 07:45] LABS: BASOPHILS % 0.4 % (0.0-2.0); HEMATOCRIT. 31.3 % (36.0-48.0); HEMOGLOBIN. 10.5 g/dL (12.0-16.0); LYMPHOCYTES % 8.9 % (20.0-50.0); MEAN CORPUSCULAR HEMOGLOBIN 28.9 pg (28.0-32.0); MEAN CORPUSCULAR VOLUME 86.1 fL (81.0-99.0); MEAN PLATELET VOLUME 8.8 fl (7.4-10.4); MONOCYTES % 4.5 % (2.0-8.0); NEUTROPHILS % 86.2 % (40.0-76.0); PLATELET 459 x1000/uL (130-400); RED BLOOD CELL COUNT 3.64 mill/uL (4.2-5.4); RED CELL DISTRIBUTION WIDTH 13.2 % (11.6-14.6)
[2021-12-10 08:00] VITALS: BP 95/63
[2021-12-10] MEDS: DEXAMETHASONE 4MG/ML 1ML VIAL IV SCH (09:57)
[2021-12-10 12:00] VITALS: BP 118/78
[2021-12-10] MEDS ORDERED: INSULIN GLARGINE UD 100 UNITS/ML SYR SUBCUT SCH ×2 (12:00→22:00)
[2021-12-10] MEDS ORDERED: INSULIN GLARGINE UD 100 UNITS/ML SYR SUBCUT NR (13:00)
== END 2021-12-10 13:00 | disposition left against medical advice (07) | DRG 720 ==
LOC: ER 10:47 → EDBEDREQ 13:19 → 8WST 13:57 → EDBEDREQ 15:11 → EDBEDREQSVC 12-09 16:06 → ENRESERV 12-09 20:31
PROVIDERS: ADMIT Internal Medicine; ATTEND Internal Medicine
DX: A41.89 Other specified sepsis (principal); J96.01 Acute respiratory failure with hypoxia; J12.82 Pneumonia due to coronavirus disease 2019; U07.1 COVID-19; E11.10 Type 2 diabetes mellitus with ketoacidosis without coma; K85.90 Acute pancreatitis without necrosis or infection, unspecified; J93.83 Other pneumothorax; R65.20 Severe sepsis without septic shock; E86.0 Dehydration; Z53.29 Procedure and treatment not carried out because of patient's decision for other reasons; E87.5 Hyperkalemia; E87.1 Hypo-osmolality and hyponatremia; E11.65 Type 2 diabetes mellitus with hyperglycemia; Z90.49 Acquired absence of other specified parts of digestive tract; Z79.4 Long term (current) use of insulin; Z88.5 Allergy status to narcotic agent
CPT/HCPCS: 36415; 36600; 71045; 80048; 80053; 81003; 82010; 82150; 82375; 82805; 82962; 83036; 83615; 84145; 84443; 84484; 84703; 85025; 86140; 87426; 93005; 99291; J0456; J0696; J1100; J1650; J1815; J2405; J7030; J7050; J7060

== ENCOUNTER 2022-11-29 03:37 | Inpatient (IN) | payer MEDICAID ==
[~2022-11-29] VITALS: Ht 162.6 cm; Wt 54.4 kg
[~2022-11-29 03:37] MED LIST changes: +BLOO-1465 MT; -INSASP SQ; +INSLIS SUBCUT; -INSU100C11 SQ; +LANC-493 TP; +LANTUSUD SUBCUT; +SYRI-219 SQ
[2022-11-29] MEDS ORDERED: VISCOUS LIDOCAINE 2% 15 ML UDC PO ONE (04:00)
[2022-11-29] MEDS ORDERED: ONDANSETRON HCL 4MG/2ML INJ IV STA (04:00)
[2022-11-29] MEDS ORDERED: MORPHINE SULFATE 4 MG/ML CPJ (NOT FOR IM USE) IV STA (04:00)
[2022-11-29] MEDS ORDERED: SODIUM CHLORIDE 0.9% 1000ML BAG (SEPSIS BOLUS) IV ONE (04:00)
[2022-11-29] MEDS ORDERED: MAGNESIUM/ALUMINUM HYDROXIDE/SIMETHICONE 30ML UDC PO ONE (04:00)
[2022-11-29] MEDS ORDERED: ONDANSETRON HCL 4MG/2ML INJ IV ONE (05:45)
[2022-11-29 05:54] LABS: HEMOGLOBIN. 12.4 g/dL (12.0-16.0); MEAN CORPUSCULAR HEMOGLOBIN 29.1 pg (28.0-32.0); MEAN CORPUSCULAR VOLUME 91.3 fL (81.0-99.0); MEAN PLATELET VOLUME 9.7 fl (7.4-10.4); PLATELET 636 x1000/uL (130-400); RED BLOOD CELL COUNT 4.27 mill/uL (4.2-5.4); RED CELL DISTRIBUTION WIDTH 13.5 % (11.6-14.6)
[2022-11-29 05:55] LABS: BG BASE EXCESS -2.9 mmol/L (-2.0-2.0); BG CARBOXYHEMOGLOBIN 0.4 % (0.5-1.5); BG DEOXYHEMOGLOBIN 2.7 % (0.0-5.0); BG FRACTION INSPIRED OXYGEN 21; BG HCO3 ACT 21.2 mmol/L (22.0-26.0); BG METHEMOGLOBIN 0.1 % (0.0-1.5); BG OXYGEN SATURATION 97.3 % (92.0-98.5); BG OXYHEMOGLOBIN 96.8 % (94.0-97.0); BG PCO2 34.6 mmHg (35.0-45.0); BG PH 7.406 (7.350-7.450); BG PO2 95.7 mmHg (75.0-100.0); BG SAMPLE SITE RIGHT RADIAL; BG TOTAL HEMOGLOBIN 10.9 g/dL (12.0-18.0); BG VENT MODE ROOM AIR
[2022-11-29 06:04] LABS: *AMPHETAMINES SCREEN URINE NEGATIVE (NEGATIVE); *BARBITURATES SCREEN URINE NEGATIVE (NEGATIVE); *BENZODIAZEPINES SCREEN URINE NEGATIVE (NEGATIVE); *COCAINE SCREEN URINE NEGATIVE (NEGATIVE); CANNABINOID URINE SCREEN NEGATIVE (NEGATIVE); METHADONE URINE SCREEN NEGATIVE (NEGATIVE); OPIATES URINE SCREEN NEGATIVE (NEGATIVE); PHENCYCLIDINE URINE SCREEN NEGATIVE (NEGATIVE)
[2022-11-29 06:48] LABS: PLATELET ESTIMATE INCREASED
[2022-11-29 06:50] LABS: HCG SCREEN NEGATIVE
[2022-11-29] MEDS ORDERED: MIDAZOLAM HCL 2 MG/2 ML VIAL IV ONE (07:30)
[2022-11-29 09:02] LABS: CHLORIDE 96 mEq/L (98-107)
[2022-11-29 09:15] LABS: BETA HYDROXYBUTYRATE 6.3 mMol/L (0.0-0.3); ETHANOL BLOOD < 10 mg/dL
[2022-11-29] MEDS ORDERED: INSULIN REGULAR (HUMULIN R) 300UNITS/3ML VIAL IV ONE (09:45)
[2022-11-29] MEDS ORDERED: DOCUSATE SODIUM 250MG CAPSULE PO SCH (10:30)
[2022-11-29] MEDS ORDERED: OMEPRAZOLE 20MG CAPSULE EXTENDED RELEASE PO SCH (10:30)
[2022-11-29] MEDS ORDERED: DEXTROSE 50% WATER 50ML SYRINGE IV PRN (10:30)
[2022-11-29] MEDS ORDERED: ACETAMINOPHEN 325MG TABLET PO PRN (10:30)
[2022-11-29] MEDS: ONDANSETRON HCL 4MG/2ML INJ IV PRN ×2 (10:47→17:24)
[2022-11-29] MEDS ORDERED: INSULIN GLARGINE 100 UNITS/ML SUBCUT SCH ×2 (11:00→22:00)
[2022-11-29] MEDS: BLOOD SUGAR DIAGNOSTIC STRIP TEST SCH ×3 (11:58→21:20)
[2022-11-29] MEDS: SODIUM CHLORIDE 0.9% 1,000 ML IV SCH ×2 (11:58→23:37)
[2022-11-29] MEDS: INSULIN LISPRO 100 UNITS/ML SUBCUT SCH ×3 (12:00→21:00)
[2022-11-29 16:12] VITALS: BP 150/97
[2022-11-29 16:28] VITALS: BP 150/97
[2022-11-29 21:00] VITALS: BP 161/66
[2022-11-29] MEDS ORDERED: ONDANSETRON HCL 4MG/2ML INJ IV NR (21:30)
[2022-11-30 13:43] LABS: CLARITY URINE CLEAR (CLEAR); COLOR URINE YELLOW (YELLOW); KETONES URINE 3+ (NEGATIVE); LEUKOCYTE ESTERASE URINE NEGATIVE (NEGATIVE); NITRITE URINE NEGATIVE (NEGATIVE); OCCULT BLOOD URINE NEGATIVE (NEGATIVE); PROTEIN URINE NEGATIVE (NEGATIVE); SPECIFIC GRAVITY URINE 1.027 (1.005-1.030); UROBILINOGEN URINE 0.2 E.U./dL (0.2-1.0)
[2022-12-05 10:11] LABS: DRVVT LA 39.1 sec (0.0-47.0); LUPUS ANTICOAG INTERPRETATION Comment: (.); PTT-LA 31.1 sec (0.0-51.9)
== END 2022-11-30 01:03 | disposition left against medical advice (07) | DRG 420 ==
LOC: ER 03:37 → MICUSO 07:06 → 7EST 15:20
PROVIDERS: ADMIT Internal Medicine; ATTEND Internal Medicine
DX: E11.65 Type 2 diabetes mellitus with hyperglycemia (principal); E44.1 Mild protein-calorie malnutrition; E87.1 Hypo-osmolality and hyponatremia; Z53.29 Procedure and treatment not carried out because of patient's decision for other reasons; Z79.4 Long term (current) use of insulin; Z88.6 Allergy status to analgesic agent; Z90.49 Acquired absence of other specified parts of digestive tract
CPT/HCPCS: 36415; 36600; 71045; 74176; 80053; 80305; 80320; 81003; 82010; 82375; 82805; 82962; 83880; 84484; 84703; 85025; 85613; 85732; 99291; J1815; J2250; J2270; J2405; J7030; G0480